=== PATIENT | female | born 1995 | race Caucasian/White ===

== ENCOUNTER 2018-10-20 02:23 | Observation (INO) | payer OTHER ==
[2018-10-20 02:49] VITALS: O2SAT 99
[2018-10-20 02:52] LABS: Appearance SLIGHTLY CLOUDY (CLEAR); Bacteria FEW /HPF (NEGATIVE); Bilirubin NEGATIVE (NEGATIVE); Blood NEGATIVE Ery/ul (0-5); Epithelial Cells FEW /HPF (FEW); Glucose NEGATIVE (NEGATIVE); Ketones NEGATIVE (NEGATIVE); Leukocyte Esterase TRACE (NEGATIVE); Mucus SLIGHT /HPF (NEGATIVE); Nitrite NEGATIVE (NEGATIVE); Protein,Urine Dip NEGATIVE (Negative); RBC 0-2 /HPF (0-2); Specific Gravity 1.005 (1.005-1.025); Urobilinogen NEGATIVE mg/dL (0-1)
[2018-10-20 03:18] LABS: Amphetamine,Urine NEGATIVE (NEGATIVE); Barbiturate,Urine NEGATIVE (NEGATIVE); Benzodiazepine,Urine NEGATIVE (NEGATIVE); Cocaine,Urine NEGATIVE (NEGATIVE); Methadone,Urine NEGATIVE (NEGATIVE); Opiate,Urine NEGATIVE (NEGATIVE); PCP,Urine NEGATIVE (NEGATIVE); THC,Urine NEGATIVE (NEGATIVE)
[2018-10-20] MEDS ORDERED: Lactated Ringers 1,000 ML IV ONE (03:47)
[2018-10-20 05:00] VITALS: BP 140/74; PULSE 86
[2018-10-20] MEDS ORDERED: TYLENOL 325 MG PO ONE (05:46)
== END 2018-10-20 06:25 | disposition home or self-care (01) ==
LOC: OB 02:23
PROVIDERS: ADMIT Family Medicine; ATTEND Family Medicine
DX: Z34.03 Encounter for supervision of normal first pregnancy, third trimester (principal)
CPT/HCPCS: 80307; 81001; G0378; A9270-GY

== ENCOUNTER 2018-10-21 23:02 | Observation (INO) | payer OTHER ==
[2018-10-22 00:12] VITALS: BP 130/75; PULSE 90
== END 2018-10-22 02:43 | disposition home or self-care (01) ==
LOC: OB 23:02
PROVIDERS: ADMIT Family Medicine; ATTEND Family Medicine
DX: Z34.03 Encounter for supervision of normal first pregnancy, third trimester (principal)
CPT/HCPCS: G0378

== ENCOUNTER 2018-10-28 01:28 | Inpatient (IN) | payer OTHER ==
[2018-10-28] MEDS ORDERED: XYLOCAINE 1% HCL 20 ML MDV IJ PRN (05:00)
[2018-10-28] MEDS ORDERED: Zofran 4 MG/2 ML VIAL IV PRN (05:00)
[2018-10-28] MEDS ORDERED: PITOCIN 30 UNITS/ LR 500 ML 500 ML IV SCH ×2 (05:30)
[2018-10-28] MEDS ORDERED: BRETHINE 1 MG/ML SQ PRN (05:30)
[2018-10-28 05:32] LABS: BASOPHIL % 0.2 % (0.0-0.4); Basophil (Absolute #) 0.04 (0-0.4); Eosinophil % 2.4 % (0.00-5.0); Eosinophil (Absolute #) 0.41 (0-0.5); Granulocyte Absolute (ANC) 11.89 (1.4-6.9); Hematocrit 38.6 % (35-47); Hemoglobin 12.6 gm/dl (12.0-16.0); Lymphocyte (Absolute #) 3.78 (1.0-4.6); Lymphocytes % 21.9 % (24.0-44.0); Mean Cell Volume 95.5 fl (78-100); Mean Corpuscular Hgb Concent. 32.6 g/dl (32-36); Mean Platelet Volume 12.2 fl (6-9.5); Monocytes % 6.5 % (0.0-12.0); Platelet Count 334 K/mm3 (150-450); Red Blood Count 4.04 M/mm3 (4.1-5.4); Red Cell Distribution Width 13.3 % (11.5-14.0); White Blood Count 17.2 K/mm3 (4.0-10.5)
[2018-10-28 05:39] LABS: Mean Corpuscular Hemoglobin 31.1 pg (26-32)
[2018-10-28] MEDS: Lactated Ringers 1,000 ML IV SCH ×2 (06:13→13:55)
[2018-10-28 07:05] LABS: Amphetamine,Urine NEGATIVE (NEGATIVE); Barbiturate,Urine NEGATIVE (NEGATIVE); Benzodiazepine,Urine NEGATIVE (NEGATIVE); Cocaine,Urine NEGATIVE (NEGATIVE); Methadone,Urine NEGATIVE (NEGATIVE); Opiate,Urine NEGATIVE (NEGATIVE); PCP,Urine NEGATIVE (NEGATIVE); THC,Urine NEGATIVE (NEGATIVE)
[2018-10-28] MEDS ORDERED: OB EPIDURAL NAROPIN/SUFENTANIL IN NACL EPIDURAL PRN (09:07)
[2018-10-28] MEDS ORDERED: Ephedrine Sulfate 50 MG/ML IV PRN (09:07)
[2018-10-28] MEDS: Lactated Ringers 1,000 ML IV ONE ×2 (09:26→10:02)
[2018-10-28 09:43] LABS: ALBUMIN 3.2 g/dL (3.5-5.0); ALKALINE PHOSPHATASE 137 U/L (38-126); ANION GAP 11.9 MEQ/L (5-15); BLOOD UREA NITROGEN 4 mg/dL (7-17); CHLORIDE 108 mmol/L (98-107); Calcium 9.2 mg/dL (8.4-10.2); Carbon Dioxide 21 mmol/L (22-30); Creatinine 1 0.39 mg/dL (0.52-1.04); Glucose 86 mg/dL (74-106); Potassium 3.5 mmol/L (3.5-5.1); SGOT/AST 22 U/L (14-36); SGPT/ALT 13 U/L (0-35); SODIUM 138 mmol/L (137-145); Total Protein 6.4 g/dL (6.3-8.2); Uric Acid 4.1 mg/dL (2.6-6.0)
[2018-10-28] MEDS ORDERED: XYLOCAINE 2%/Epi 1:200000 20ML VIAL MPF IJ SCH (10:15)
[2018-10-28 12:01] VITALS: O2SAT 100
[2018-10-28] MEDS ORDERED: Anucort-HC SUPPOSITORY PR PRN (16:44)
[2018-10-28] MEDS ORDERED: Dermoplast Spray TP PRN (16:44)
[2018-10-28] MEDS ORDERED: Mylicon 80MG PO PRN (16:44)
[2018-10-28] MEDS ORDERED: Dulcolax 10 MG SUPP PR PRN (16:44)
[2018-10-28] MEDS ORDERED: TUCKS TP PRN (16:44)
[2018-10-28] MEDS ORDERED: CORTISONE 1% CREAM TP PRN (16:44)
[2018-10-28] MEDS ORDERED: NORCO 5/325 MG PO PRN (16:44)
[2018-10-28] MEDS: TYLENOL EXTRA STRENGTH 500 MG PO PRN (19:38)
[2018-10-28] MEDS: Colace 100 MG PO SCH (21:41)
[2018-10-29 05:59] LABS: BASOPHIL % 0.2 % (0.0-0.4); Basophil (Absolute #) 0.03 (0-0.4); Granulocytes % 71.9 % (36.0-66.0); Hematocrit 35.2 % (35-47); Hemoglobin 11.5 gm/dl (12.0-16.0); Lymphocyte (Absolute #) 3.97 (1.0-4.6); Lymphocytes % 19.9 % (24.0-44.0); Mean Cell Volume 95.9 fl (78-100); Mean Corpuscular Hemoglobin 31.3 pg (26-32); Mean Corpuscular Hgb Concent. 32.7 g/dl (32-36); Mean Platelet Volume 12.2 fl (6-9.5); Platelet Count 310 K/mm3 (150-450); Red Blood Count 3.67 M/mm3 (4.1-5.4); Red Cell Distribution Width 13.2 % (11.5-14.0); White Blood Count 19.9 K/mm3 (4.0-10.5)
[2018-10-29] MEDS: Colace 100 MG PO SCH ×2 (09:28→22:56)
[2018-10-29] MEDS: FERREX 150 PO SCH (09:29)
[2018-10-29] MEDS: TYLENOL EXTRA STRENGTH 500 MG PO PRN ×2 (09:29→22:56)
[2018-10-29] MEDS: Klor Con 10 MEQ PO SCH (09:29)
[2018-10-29] MEDS: MOTRIN 400 MG PO PRN (19:50)
[2018-10-30] MEDS: MOTRIN 400 MG PO PRN ×2 (01:49→09:06)
[2018-10-30] MEDS: TYLENOL EXTRA STRENGTH 500 MG PO PRN (04:55)
[2018-10-30 08:33] VITALS: PULSE 64
--- NOTE | 2018-10-30 08:58 | PCM.DS ---
Discharge Summary Date of Admission: 10/28/18 08:55 Admitting Physician: PAULINE COLIN Primary Care Provider: PAULINE COLIN Allergies Allergies No Known Drug Allergies Allergy (Verified 10/22/18 00:22) Hospital Summary - Hospital Course Hospital Course: patient had , induction at 37wks secondary to mild pre-eclampsia. no complications with delivery, doing well . mild lochia, pain controlled with tylenol and ibuprofen - Vitals & Intake/Output Vital Signs: Vital Signs Temperature 98.5 F 10/30/18 08:00 Pulse Rate 64 10/30/18 08:00 Respiratory Rate 18 10/30/18 08:00 Blood Pressure 109/57 10/30/18 08:00 O2 Sat by Pulse Oximetry 100 10/28/18 11:45 Intake & Output: Intake & Output 10/27/18 10/28/18 10/29/18 10/30/18 11:59 11:59 11:59 11:59 Intake Total 3384 Output Total 300 Balance 3084 Weight 68.039 kg - Lab Result Diagrams: 10/29/18 05:25 10/28/18 09:10 Discharge Exam General Appearance: no apparent distress, alert Respiratory Exam: normal breath sounds, lungs clear, No respiratory distress Cardiovascular Exam: regular rate/rhythm, normal heart sounds Extremity Exam: normal inspection, normal range of motion Skin Exam: normal color, warm, dry Final Diagnosis/Problem List - Final Discharge Diagnosis/Problem (1) Vaginal delivery Current Visit: Yes Status: Acute Code(s): O80 - ENCOUNTER FOR FULL-TERM UNCOMPLICATED DELIVERY (2) Pre-eclampsia Current Visit: Yes Status: Acute Assessment & Plan: patient normotensive, swelling improved and nearly resolved since delivery. Code(s): O14.90 - UNSPECIFIED PRE-ECLAMPSIA, UNSPECIFIED TRIMESTER - Discharge Disposition: Home, Self-Care Condition: Stable Prescriptions: New Ibuprofen 800 mg PO TID PRN #30 tablet Continue Vit#96/Ferrous Fum/FA [ Tablet] 1 tab PO DAILY Discontinued Potassium Chloride [Klor-Con 10] 20 meq PO DAILY Follow up with: PAULINE COLIN MD [Primary Care Provider] - 1 Week
[2018-10-30] MEDS: Colace 100 MG PO SCH (09:05)
[2018-10-30] MEDS: FERREX 150 PO SCH (09:05)
[2018-10-30] MEDS: Klor Con 10 MEQ PO SCH (09:05)
[2018-10-30 16:14] VITALS: BP 113/72
== END 2018-10-30 17:45 | disposition home or self-care (01) | DRG 807 ==
LOC: OB 05:03 → OBSVTOIN 08:55 → OB 08:55
PROVIDERS: ADMIT Family Medicine; ATTEND Family Medicine
PROC: 0KQM0ZZ Repair Perineum Muscle, Open Approach (ICD-10-PCS; principal; 2018-10-28)
PROC: 10E0XZZ Delivery of Products of Conception, External Approach (ICD-10-PCS; 2018-10-28)
DX: O14.04 Mild to moderate pre-eclampsia, complicating childbirth (principal); Z37.0 Single live birth; O70.1 Second degree perineal laceration during delivery; Z3A.37 37 weeks gestation of pregnancy
CPT/HCPCS: 36415; 76815; 80053; 80307; 84550; 85025; 87086; G0378; J2590; J2795; A9270-GY

== ENCOUNTER 2021-05-14 10:48 | Emergency (ER) | payer OTHER ==
--- NOTE | 2021-05-14 10:51 | ERPHSYRPT ---
- History of Present Illness Time Seen by Provider: 05/14/21 10:51 Source: patient Exam Limitations: no limitations Physician History: This is a 25-year-old white female who states that her last menstrual period was 04/15/2021. She presents with vaginal bleeding that started this morning. Patient states that she usually has menstrual periods 27 days apart. Typically, she has cramping prior to her menstrual period and she did not have that this time. In addition, in the last couple weeks, patient states that she has had tender breasts and feeling fatigued and thought she might be . However, she did not take a test. She has no significant abdominal pain. She has no nausea vomiting or diarrhea symptoms. She has no fevers. She has no chest pain and she has no cough. She has no shortness of breath Activites at Onset: none Onset Location: breast pain (R), breast pain (L) Pain Radiation: none Severity of Pain-Max: none Severity of Pain-Current: none Prior abdominal problems: none Modifying Factors: Improves With: nothing Associated Symptoms: vaginal discharge (Bleeding today), No dysuria, No urinary frequency Allergies/Adverse Reactions: amoxicillin Adverse Reaction (Verified 05/14/21 11:08) Penicillins Adverse Reaction (Verified 05/14/21 11:08) Home Medications: No Reportable Medications [No Reported Medications] 05/14/21 [History] Travel Risk - International Travel Have you traveled outside of the country in past 3 weeks: No - Coronavirus Screening Are you exhibiting any of the following symptoms?: No Close contact with a COVID-19 positive Pt in past 14-21 Days: No - Review of Systems Constitutional: Weakness Eyes: No Symptoms Ears, Nose, & Throat: No Symptoms Respiratory: No Symptoms Cardiac: No Symptoms Abdominal/Gastrointestinal: No Symptoms Genitourinary Symptoms: Vaginal Bleeding Musculoskeletal: No Symptoms Skin: No Symptoms Neurological: No Symptoms Psychological: No Symptoms Endocrine: No Symptoms Hematologic/Lymphatic: No Symptoms Immunological/Allergic: No Symptoms All Other Systems: Reviewed and Negative - Past Medical History Neurological History: No Pertinent History ENT History: No Pertinent History Respiratory History: Asthma Endocrine Medical History: No Pertinent History Musculoskeletal History: No Pertinent History GI Medical History: GERD History: No Pertinent History Psycho-Social History: No Pertinent History Female Reproductive Disorders: No Pertinent History - Past Surgical History Past Surgical History: Yes Neuro Surgical History: No Pertinent History Cardiac: No Pertinent History Respiratory: No Pertinent History Gastrointestinal: No Pertinent History Genitourinary: No Pertinent History Musculoskeletal: No Pertinent History Female Surgical History: No Pertinent History Other Surgical History: as an pt had surgery on bilateral ears to have extra cartliage removed. - Social History Smoking Status: Current every day smoker How long have you smoked: 8 yrs Exposure to second hand smoke: No Drug Use: none - Nursing Vital Signs Nursing Vital Signs: Initial Vital Signs Temperature 97.7 F 05/14/21 10:53 Pulse Rate 72 05/14/21 10:53 Blood Pressure 119/71 05/14/21 10:53 O2 Sat by Pulse Oximetry 100 05/14/21 10:53 Pain Scale Pain Intensity 6 - Physical Exam General Appearance: no apparent distress, alert, anxiety Eye Exam: PERRL/EOMI, eyes nml inspection Ears, Nose, Throat Exam: normal ENT inspection, moist mucous membranes Neck Exam: normal inspection, non-tender, supple, full range of motion Respiratory Exam: normal breath sounds, lungs clear, airway intact, No chest tenderness, No respiratory distress Cardiovascular Exam: regular rate/rhythm, normal heart sounds, normal peripheral pulses Gastrointestinal/Abdomen Exam: soft, No normal bowel sounds, No tenderness Pelvic Exam: not done Rectal Exam: not done Back Exam: normal inspection, normal range of motion, No CVA tenderness, No ve rtebral tenderness Extremity Exam: normal inspection, normal range of motion, pelvis stable Neurologic Exam: alert, oriented x 3, cooperative, 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, normal mood/affect, nml cerebellar function, nml station & gait, sensation nml Skin Exam: normal color, warm, dry Lymphatic Exam: No adenopathy SpO2 Interpretation: normal O2 Delivery: Room Air - Course Nursing assessment & vital signs reviewed: Yes Ordered Tests: Active Orders 24 hr Category Date Time Status CULTURE,URINE Stat Lab 05/14/21 11:27 Received HCG,QUALITATIVE URINE Stat Lab 05/14/21 11:27 Completed UA W/RFX UR CULTURE Stat Lab 05/14/21 11:27 Completed Lab/Rad Data: Laboratory Results 05/14/21 05/14/21 Range/Units 11:27 11:27 Urine Color YELLOW (YELLOW) Urine Appearance SLIGHTLY CLOUDY (CLEAR) Urine pH 5.0 (5-6) Ur Specific [place] 1.024 (1.005-1.025) Urine Protein NEGATIVE (Negative) Urine Ketones NEGATIVE (NEGATIVE) Urine Blood MODERATE (0-5) Chauncey/ul Urine Nitrite NEGATIVE (NEGATIVE) Urine Bilirubin NEGATIVE (NEGATIVE) Urine Urobilinogen NEGATIVE (0-1) mg/dL Ur Leukocyte Esterase NEGATIVE (NEGATIVE) Urine WBC (Auto) 0-2 (0-5) /HPF Urine RBC (Auto) 51-100 (0-2) /HPF U Epithel Cells (Auto) RARE (FEW) /HPF Urine Bacteria (Auto) NONE (NEGATIVE) /HPF Urine Mucus (Auto) MANY (NEGATIVE) /HPF Urine Culture Reflexed YES (NO) Urine Glucose NEGATIVE (NEGATIVE) mg/dL Urine HCG, Qual NEGATIVE (Negative) - Progress Progress: unchanged Air Movement: good Blood Culture(s) Obtained: No Antibiotics given: No Counseled pt/family regarding: lab results, diagnosis, need for follow-up - Departure Departure Disposition: Home Clinical Impression: Normal menstrual period Condition: Stable Critical Care Time: No Referrals: PAULINE COLIN MD [Primary Care Provider] - Follow up/PCP as directed Additional Instructions: Drink plenty of fluids. Follow-up with your primary prescribing provider on an as-needed basis.
[2021-05-14 11:07] VITALS: BP 119/71; PULSE 72; O2SAT 100
[2021-05-14 11:32] LABS: Appearance SLIGHTLY CLOUDY (CLEAR); Bilirubin NEGATIVE (NEGATIVE); Blood MODERATE Ery/ul (0-5); Epithelial Cells RARE /HPF (FEW); Glucose NEGATIVE (NEGATIVE); Ketones NEGATIVE (NEGATIVE); Leukocyte Esterase NEGATIVE (NEGATIVE); Mucus MANY /HPF (NEGATIVE); Nitrite NEGATIVE (NEGATIVE); Protein,Urine Dip NEGATIVE (Negative); RBC 51-100 /HPF (0-2); Specific Gravity 1.024 (1.005-1.025); Urobilinogen NEGATIVE mg/dL (0-1); WBC 0-2 /HPF (0-5)
== END 2021-05-14 11:50 | disposition home or self-care (01) ==
LOC: ED 10:48
DX: Z00.00 Encounter for general adult medical examination without abnormal findings (principal); Z72.0 Tobacco use
CPT/HCPCS: 81001; 84703; 87086; 99283